=== PATIENT | female | born 2000 ===

== ENCOUNTER 2020-12-12 15:53 | Emergency (ER) | payer SELFPAY ==
[~2020-12-12] VITALS: Ht 175.3 cm; Wt 83.6 kg
[2020-12-12 16:11] VITALS: BP 115/83; Ht 175.3 cm; Wt 83.6 kg
[2020-12-12 20:02] LABS: BILIRUBIN NEGATIVE (NEGATIVE); KETONE MODERATE mg/dL (NEGATIVE); NITRITE NEGATIVE (NEGATIVE); UROBILINOGEN NORMAL mg/dL (< 2)
[2020-12-12 20:04] LABS: BACTERIA MANY HPF (NONE SEEN); WHITE CELLS - URINE >50 HPF (0-4)
== END 2020-12-12 17:16 | disposition home or self-care (01) ==
LOC: D.ER 15:53
PROVIDERS: Family Medicine
DX: R10.2 Pelvic and perineal pain (principal); R31.9 Hematuria, unspecified; R30.0 Dysuria